=== PATIENT | female | born 1940 | race Caucasian/White ===

== ENCOUNTER → 2018-02-21 | Outpatient (CLI) | payer MEDICARE, MEDICAID ==
[~2018-02-21] MED LIST: AMLODIPINE BESY10 MG PO; ANTIVERT25 MG PO; ASPIR 8181 MG PO; ASPIRIN325 PO; CALCIUM 600 +1 EAC1 PO; CLOPIDOGREL75 MG PO; FOSAMAX 70 MG T70 MG PO; GLUCOPHAGE XR500 MG PO; GLUCOTROL5 MG PO; IRON325 PO; MAGOX 400400 MG PO; OMEPRAZOLE40 MG PO; PRINIVIL20 MG PO; SYNTHROID50 MCG PO; TYLENOL325 MG PO; UNICOMPLEX M TA1 TA1 PO; VITAMIN B-1100 M1 PO; VITAMINC500 PO; XANAX 0.25 MG0.25 MG PO; ZOCOR20 MG PO; ZOFRAN ODT4 MG PO; ZOFRAN ODT4 MG SUBLING
== END ==
LOC: M.ULTRA 13:45
DX: I65.23 Occlusion and stenosis of bilateral carotid arteries (principal); I77.1 Stricture of artery

== ENCOUNTER 2019-04-09 15:34 | Inpatient (IN) | payer MEDICARE, MEDICAID ==
[~2019-04-09] VITALS: Ht 162.6 cm; Wt 73.7 kg
[2019-04-09 15:40] VITALS: BP 125/37
[2019-04-09 16:03] LABS: ABSOLUTE BASOPHILS 0.1 thou/uL (0.0-0.2); ABSOLUTE EOSINOPHILS 0.2 thou/uL (0.0-0.7); ABSOLUTE LYMPHOCYTES 1.9 thou/uL (0.8-5.3); ABSOLUTE MONOCYTES 0.5 thou/uL (0.0-1.2); ABSOLUTE NEUTROPHILS 8.7 thou/uL (1.6-8.1); BASOPHILS 0.5 %; EOSINOPHILS 1.4 %; HEMATOCRIT 30.7 % (37.0-47.0); HEMOGLOBIN 10.1 gm/dL (12.0-15.0); LYMPHOCYTES 17.1 %; MCH 31.1 pg (26.0-34.0); MCHC 32.8 g/dL (28.0-37.0); MONOCYTES 4.3 %; MPV 9.8 fl. (7.2-11.1); NUCLEATED RBCS 0 /100WBC; PLATELET COUNT* 195 thou/uL (150-400); POLYS 76.7 %; RBC 3.23 mil/uL (4.20-5.00); RDW-CV 13.7 % (10.5-14.5); WBC 11.4 thou/uL (4.0-11.0)
[2019-04-09 16:12] LABS: CALCIUM 8.8 mg/dL (8.5-10.1)
[2019-04-09 16:17] LABS: ALBUMIN 3.8 g/dL (3.4-5.0); TOTAL BILIRUBIN 0.1 mg/dL (<0.1-1.0); TOTAL PROTEIN 7.1 g/dL (6.4-8.2)
[2019-04-09 18:54] LABS: APTT 29.2 Seconds (25.0-31.3); PROTIME 10.4 Seconds (9.20-11.50)
[2019-04-09 21:30] VITALS: BP 114/56; BP 120/62
[2019-04-09 22:22] LABS: URINE BILIRUBIN NEGATIVE (Negative); URINE BLOOD NEGATIVE (Negative); URINE CLARITY CLEAR; URINE COLOR YELLOW; URINE GLUCOSE-RANDOM NEGATIVE (Negative); URINE KETONES NEGATIVE (Negative); URINE LEUKOCYTES-REFLEX NEGATIVE (Negative); URINE NITRITE-REFLEX NEGATIVE (Negative); URINE PROTEIN NEGATIVE (Negative); URINE UROBILINOGEN 0.2 E.U./dl (0.2-1.0)
[2019-04-10] VITALS (11 sets, daily range): BP systolic 101–137; BP diastolic 41–76
[2019-04-10 01:10] LABS: PCO2 27.2 mmHg (35.0-45.0); PO2 115.4 mmHg (75.0-100.0); pH 7.359 (7.340-7.450)
[2019-04-10 01:11] LABS: BE -9.1 mmol/L (-2 to +3)
[2019-04-10 05:07] LABS: ABSOLUTE LYMPHOCYTES 1.5 thou/uL (0.8-5.3); ABSOLUTE MONOCYTES 0.7 thou/uL (0.0-1.2); ABSOLUTE NEUTROPHILS 8.6 thou/uL (1.6-8.1); BASOPHILS 0.2 %; EOSINOPHILS 0.4 %; HEMATOCRIT 29.2 % (37.0-47.0); HEMOGLOBIN 9.6 gm/dL (12.0-15.0); LYMPHOCYTES 13.6 %; MCH 31.2 pg (26.0-34.0); MCHC 32.9 g/dL (28.0-37.0); MCV 94.7 fL (80.0-100.0); MONOCYTES 6.1 %; MPV 9.8 fl. (7.2-11.1); NUCLEATED RBCS 0 /100WBC; PLATELET COUNT* 155 thou/uL (150-400); POLYS 79.7 %; RBC 3.09 mil/uL (4.20-5.00); RDW-CV 13.7 % (10.5-14.5); WBC 10.8 thou/uL (4.0-11.0)
[2019-04-10 05:20] LABS: ALBUMIN 2.8 g/dL (3.4-5.0); ALKALINE PHOSPHATASE 32 U/L (46-116); ANION GAP 13 mmol/L (7-16); BUN 13 mg/dL (7-18); CALCIUM 7.7 mg/dL (8.5-10.1); CHLORIDE 107 mmol/L (98-107); CHOLESTEROL 109 mg/dL (<200); CO2 19 mmol/L (21-32); CREATININE 0.8 mg/dL (0.6-1.3); GLUCOSE 136 mg/dL (70-99); HDL CHOLESTEROL 46 mg/dL (>40); LDL CHOLESTEROL 54 mg/dL (<100); POTASSIUM 3.8 mmol/L (3.5-5.1); SGOT 34 U/L (15-37); SGPT 17 U/L (30-65); SODIUM 139 mmol/L (136-145); TC:HDL 2.4 Ratio (Not establshd); TOTAL BILIRUBIN 0.2 mg/dL (<0.1-1.0); TOTAL PROTEIN 5.8 g/dL (6.4-8.2); TRIGLYCERIDE 45 mg/dL (<150); VLDL 9 mg/dL (<40)
[2019-04-10 05:21] LABS: SERUM ASSESSMENT Clear
--- NOTE | 2019-04-10 12:29 | CON ---
[address] [address] CONSULTATION Name: OSVALDO MACHADO Room: [address] IN .R.#: [id number] Admission: 04/09/19 Attend Phys: Seda Rizzo Discharge: Date of : 42 Report #: [id number] THIS REPORT FOR: //name// CC: Nader Brown MD [facility] Nader Rogers DO INDICATION: Non-ST elevation myocardial infarction. HISTORY OF PRESENT ILLNESS: The patient is a very pleasant 79-year-old white female who presented to the Emergency Room with progressive midsternal chest discomfort, abdominal pain and shortness of breath. The patient states she has been having intermittent chest discomfort for the past 3-4 days, relieved with rest. Her initial troponins were mildly elevated. Her peak troponin thus far is 6.0 suggesting non-ST elevation myocardial infarction. EKG shows sinus rhythm with diffuse ST segment depression. PAST MEDICAL HISTORY: 1. Carotid disease, status post left carotid stenting. 2. Coronary artery disease. 3. Hypertension. 4. Type 2 diabetes mellitus. 5. Hypercholesterolemia. 6. GERD. 7. Anxiety. 8. Hypothyroidism. 9. Hysterectomy. 10. 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 11. Tonsillectomy. 12. Hammertoe surgery. ALLERGIES: METFORMIN AND SULFAS. HOME MEDICATIONS: Glipizide 5 mg daily, Plavix 75 mg daily, Fosamax 70 mg weekly, simvastatin 20 mg at bedtime, aspirin 325 mg daily, Xanax 0.25 mg daily, amlodipine 10 mg daily, calcium carbonate with vitamin D supplement 1 tablet daily, lisinopril 20 mg daily. SOCIAL HISTORY: The patient smokes 4-5 cigarettes daily. She had a history of heavy alcohol use remotely, but quit 10-12 years ago. She lives alone. FAMILY HISTORY: Noncontributory. PHYSICAL EXAMINATION: VITAL SIGNS: Blood pressure 105/41, pulse 77 and regular. GENERAL: This is a pleasant lady who is not in distress. [place] [address] CONSULTATION Name: KATHARINE MACHADORA Honey Room: [address]#: [id number] Admission: 04/09/19 Attend Phys: Seda Rizzo Discharge: Date of : 42 Report #: [id number] she has had some respiratory insufficiency. HEENT: Head is normocephalic, atraumatic. Extraocular muscles intact. NECK: Shows no jugular venous distention. CHEST: Reveals diminished breath sounds throughout without wheezes or rales. CARDIOVASCULAR: Reveals distant S1 and S2. I do not appreciate gallop or murmur. ABDOMEN: Reveals normal bowel sounds. The abdomen is soft, nontender. EXTREMITIES: Shows no edema. Peripheral pulses palpable. SKIN: Dry. LABORATORY DATA: A 12-lead EKG shows sinus rhythm with diffuse ST segment depression consistent with ischemia. Chest x-ray shows mild cardiomegaly. I do not appreciate findings of heart failure. Possible right lower lobe pneumonia. Labs are reviewed. Sodium 139, potassium 3.8, chloride 107, bicarbonate 19, BUN 13, creatinine 0.8, serum glucose 136, albumin 2.8. Troponin presently 6.00. NT-proBNP 3999. Lipid profile shows cholesterol 109, triglycerides 45, HDL 46, LDL 54. Hemoglobin 9.6, white blood cell count 10.8, platelet count 155,000. IMPRESSION AND RECOMMENDATIONS: 1. Non-ST elevation myocardial infarction. The patient is on a heparin drip presently. Continue daily aspirin and Plavix. We will proceed with coronary angiography and possible intervention pending those results. 2. Respiratory failure. I suspect there has been some ysabj-wd-rodpeel diastolic heart failure. We will give bolus of IV Lasix and follow. 3. Hypertension. Blood pressure adequately controlled on current cardiac regimen. 4. Dyslipidemia, at goal on current dose of statin agent. 5. Diabetes per hospitalist. <ELECTRONICALLY SIGNED> By: Mukesh Richter MD, FACC 04/10/19 1229 0912 [id number] Richter MD, FACC /nt
--- NOTE | 2019-04-10 15:47 | 2DMMODE ---
[place] [address] 2 D/M-MODE ECHOCARDIOGRAM Name: OSVALDO MACHADO Room: [address] IN [facility]#: [id number] Admission: 04/09/19 Attend Phys: Shan Rogers Discharge: Date of : 42 Date of Service: 04/10/19 1547 Report #: [id number] THIS REPORT FOR: //name// APPROVED REPORT Study performed: 04/10/2019 11:06:49 EXAM: Comprehensive 2D, Doppler, and color-flow Echocardiogram Patient Location: In-Patient Room #: [facility] Status: routine BSA: 1.68 HR: 75 bpm BP: 105/41 mmHg Rhythm: NSR Other Information Study Quality: Good Indications Chest Pain 2D Dimensions IVSd: 9.72 (7-11mm) LVOT Diam: 19.90 (18-24mm) LVDd: 46.43 mm PWd: 8.93 (7-11mm) Ascending Ao: 25.31 (22-36mm) LVDs: 39.92 (25-40mm) Aortic Root: 24.37 mm Volumes Left Atrial Volume (Systole) LA ESV Index: 40.00 mL/m2 Aortic Valve AoV Peak Kamran.: 1.14 m/s AO Peak Gr.: 5.21 mmHg LVOT Max P.35 mmHg AO Mean Gr.: 3.40 mmHg LVOT Mean P.01 mmHg LVOT Max V: 0.77 m/s AO V2 VTI: 21.86 cm LVOT Mean V: 0.46 m/s CAROL (VTI): 2.06 cm2 LVOT V1 VTI: 14.44 cm Mitral Valve E/A Ratio: 2.91 MV Decel. Time: 118.10 ms MV E Max Kamran.: 1.17 m/[place] [address] 2 D/M-MODE ECHOCARDIOGRAM Name: OSVALDO MACHADO Room: [address] IN .R.#: [id number] Admission: 04/09/19 Attend Phys: Shan Rogers Discharge: Date of : 42 Date of Service: 04/10/19 1547 Report #: [id number] MV PHT: 34.25 ms MVA (PHT): 6.42 cm2 TDI E/Lateral E': 16.71 E/Medial E': 14.63 Medial E' Kamran.: 0.08 m/s Lateral E' Kamran.: 0.07 m/s Pulmonary Valve PV Peak Kamran.: 0.78 m/s PV Peak Gr.: 2.45 mmHg Tricuspid Valve RAP Estimate: 5.00 mmHg TR Peak Gr.: 35.57 mmHg RVSP: 40.00 mmHg PA Pressure: 40.00 mmHg Left Ventricle The left ventricle is normal size. There is mild global hypokinesis. There is normal left ventricular wall thickness. Left ventricular systolic function is mildly decreased. LVEF is 45-50%. Transmitral Doppler flow pattern suggests restrictive physiology. Right Ventricle The right ventricle is normal size. The right ventricular systolic function is normal. Atria Left atrium is mildly dilated. The right atrium size is normal. Aortic Valve Mild aortic valve sclerosis. No aortic regurgitation is present. There is no aortic valvular stenosis. Mitral Valve There is mitral annular calcification. Moderate mitral regurgitation. No evidence of mitral valve stenosis. Tricuspid Valve The tricuspid valve is normal in structure. Mild tricuspid regurgitation. The RVSP is 45-50 mmHg. Pulmonic Valve The pulmonary valve is normal in structure. There is no pulmonic [place] [address] 2 D/M-MODE ECHOCARDIOGRAM Name: OSVALDO MACHADO Room: [address] IN [facility]#: [id number] Admission: 04/09/19 Attend Phys: Shan Rogers Discharge: Date of : 42 Date of Service: 04/10/19 1547 Report #: [id number] Great Vessels The aortic root is normal in size. IVC is dilated and collapses >50% with inspiration. Pericardium There is no pericardial effusion. <Conclusion> The left ventricle is normal size. There is normal left ventricular wall thickness. Left ventricular systolic function is mildly decreased. LVEF is 45-50%. Transmitral Doppler flow pattern suggests restrictive physiology. There is mild global hypokinesis. Left atrium is mildly dilated. Mild aortic valve sclerosis. There is mitral annular calcification. Moderate mitral regurgitation. Mild tricuspid regurgitation. The RVSP is 45-50 mmHg. IVC is dilated and collapses >50% with inspiration. <ELECTRONICALLY SIGNED> By: Mukesh Richter MD, FACC 04/10/19 1547 1547 1547 Mukesh Richter MD, FACC /INF
--- NOTE | 2019-04-10 15:50 | EKG ---
[place] [address] ELECTROCARDIOGRAM REPORT Name: OSVALDO MACHADO Room: [address] ADM IN R.#: [id number] Admission: 04/09/19 Attend Phys: Seda Rizzo Discharge: Date of : 41 Report #: [id number] THIS REPORT FOR: //name// [facility] ED Test Date: 2019-04-09 Test Time: 16:20:35 Pat Name: OSVALDO MACHADO Department: Room: [facility] Gender: F Gold Letterer: : 1940 Requested By: Carina Gaona Order Number: [id number] MD: Asif Renner Measurements Intervals [place] Rate: 60 P: 61 KS: 138 QRS: -24 QRSD: 93 T: 158 QT: 435 QTc: 435 Interpretive Statements Sinus rhythm Atrial premature complex Borderline left axis deviation Nonspecific repol abnormality, diffuse leads Compared to ECG 10/16/2016 15:46:17 Atrial premature complex(es) now present Early repolarization now present anterolateral st-t changes are noted Electronically Signed On 04-10-2019 15:49:42 MITIGATION SUPERVISOR by Asif Renner [email or web address] <ELECTRONICALLY SIGNED> By: Asif Renner MD, [facility] 04/10/19 1549 1620 1620 Asif Renner MD, [facility] /EPI
--- NOTE | 2019-04-10 15:53 | EKG ---
[place] [address] ELECTROCARDIOGRAM REPORT Name: CARTEROSVALDO Honey Room: [address] ADM IN .R.#: [id number] Admission: 04/09/19 Attend Phys: Seda Rizzo Discharge: Date of : 41 Report #: [id number] THIS REPORT FOR: //name// [facility] ED Test Date: 2019-04-09 Test Time: 20:39:03 Pat Name: OSVALDO MACHADO Department: Room: [facility] Gender: F Skilled Nursing Facilities Professional: DESI : 1940 Requested By: Jeniffer Horvath Order Number: [id number] MD: Asif Renner Measurements Intervals [place] Rate: 66 P: 75 [place]: 141 QRS: -16 QRSD: 101 T: 109 QT: 469 QTc: 492 Interpretive Statements Sinus rhythm Borderline left axis deviation Nonspecific repol abnormality, diffuse leads Baseline wander in lead(s) V5,V6 Compared to ECG 10/16/2016 15:46:17 T-wave abnormality persists Electronically Signed On 04-10-2019 15:52:47 ICE CRUSHER by Asif Renner [email or web address] <ELECTRONICALLY SIGNED> By: Asif Renner MD, [facility] 04/10/19 1552 38 38 Asif Renner MD, [facility] /EPI
--- NOTE | 2019-04-10 15:56 | EKG ---
[place] [address] ELECTROCARDIOGRAM REPORT Name: CARTEROSVALDO Méndez Room: [address] ADM IN M.R.#: [id number] Admission: 04/09/19 Attend Phys: Seda Rizzo Discharge: Date of : 41 Report #: [id number] THIS REPORT FOR: //name// [facility] Test Date: 2019-04-10 Test Time: 00:03:34 Pat Name: OSVALDO MACHADO Department: Room: [address] Gender: F Merchandise Presentation Associate: TCAYLJUDY : 1940 Requested By: Shan Rogers Order Number: [id number] MD: Asif Renner Measurements Intervals [place] Rate: 74 P: 69 ME: 135 QRS: -9 QRSD: 79 T: 152 QT: 588 QTc: 653 Interpretive Statements Sinus rhythm Multiple premature complexes, vent & supraven Borderline low voltage, extremity leads Borderline repolarization abnormality Prolonged QT interval Compared to ECG 10/16/2016 15:46:17 Prolonged QT interval now present T-wave abnormality persists Electronically Signed On 04-10-2019 15:56:27 CUPOLA CHARGER by Asif Renner [email or web address] <ELECTRONICALLY SIGNED> By: Asif Renner MD, [facility] 04/10/19 1556 0003 0003 Asif Renner MD, [facility] /EPI
--- NOTE | 2019-04-10 18:02 | CARD ---
[facility] [address] [place] [address] CARDIAC CATH REPORT Name: OSVALDO MACHADO Room: [address] IN ..#: [id number] Admission: 04/09/19 Attend Phys: Seda Rizzo Discharge: Date of : 41 Report #: [id number] THIS REPORT FOR: //name// APPROVED REPORT Study performed: 04/10/2019 11:35:37 Patient Details Patient Status: In-Patient Room #: The patient is a 79 year-old female Event Personnel Mukesh Richter Time Piece Repairer, Macey Mares RN Coke Still Cleaner, Abdirahman Lind RTR Scrub, Heather Peguero RTR Monitor Procedures Performed Art Access - R femoral artery, Left Heart Cath w/or w/o Coronaries , LHC Hemostasis w/ Mynx Procedure Narrative The patient was brought electively to the Cardiac Catheterization Laboratory and was prepped and draped in a sterile manner. The right femoral groin area was infiltrated with 2% Lidocaine subcutaneous anesthesia. A 6fr Ultimum Sheath sheath was inserted into the right femoral artery. Coronary angiography was performed using coronary diagnostic catheters. The right coronary system was accessed and visualized with a 6F JR4 catheter. The left coronary system was accessed and visualized with a 6F JL4 catheter. Closure device was deployed with a Fr Mynx 6Fr/7Fr. The patient tolerated the procedure well and there were no complications associated with the procedure. LV and LV-AO pullback pressures only performed with 6F JR4 catheter. Intraoperative Conscious Sedation Sedation start time: 12:10 Case end Time: 12:23 Fentanyl 25 mcg Versed 1 mg Dose: 353 mGy Contrast Type and Amount: Visipaque 40 ml Coronary Angiography The patient's coronary anatomy is [place] [address] CARDIAC CATH REPORT Name: OSVALDO MACHADO Room: [address] IN [facility]#: [id number] Admission: 04/09/19 Attend Phys: Seda Rizzo Discharge: Date of : 41 Report #: [id number] Left Main The left main coronary artery disease has significant haziness and lucency with a 70% mid vessel narrowing and 95% distal vessel narrowing. LAD Ostial left anterior descending coronary artery appears to be 90% stenosed. The mid and distal vessel are free of significant disease. Diagonal 1 The ostium of the first diagonal branch is 50% narrowed. Circumflex The circumflex coronary artery has sequential 90% stenoses in the proximal and mid vessel. Significant calcification is noted. OM1 A small first OM is diffusely disease. OM2 A small second OM is diffusely disease. OM3 A moderate size third OM is diffusely plaqued with 70% narrowing in its midportion. Right Coronary The right coronary artery has a 50% narrowing in the proximal portion. There is 30% narrowing in the midportion and 20% narrowing distally. R PDA The right PDA has plaquing in its proximal and midportion. Left Ventriculography Left Ventriculography was not performed. Hemodynamics The aortic pressure is 119/47 mmHg with a mean of 62 mmHg. The left ventricular pressure is 98/14 mmHg with a mean of mmHg. The left ventricular end diastolic pressure is 27 mmHg. Conclusion 1. Severe left main coronary artery disease. 2. Ostial left anterior descending coronary artery disease. 3. Severe proximal to mid circumflex lesion. 4. Moderate right coronary artery disease. 5. Elevated left jugular end-diastolic pressure consistent with acute diastolic heart failure. Recommendations 1. Continue aggressive risk factor modification. 2. Consider coronary artery bypass grafting. <ELECTRONICALLY SIGNED> By: Mukesh Richter MD, FACC 04/10/191800 00 00Miccarlene Richter MD, FACC /INF
[2019-04-10 23:08] LABS: GLYCOHEMOGLOBIN (HGB A1C) 6.4 % (4.8-5.6)
[2019-04-11] VITALS: BP 119/52
[2019-04-11 04:00] VITALS: BP 128/54
[2019-04-11 05:26] LABS: ABSOLUTE LYMPHOCYTES 2.3 thou/uL (0.8-5.3); ABSOLUTE MONOCYTES 0.8 thou/uL (0.0-1.2); ABSOLUTE NEUTROPHILS 6.7 thou/uL (1.6-8.1); BASOPHILS 0.2 %; EOSINOPHILS 0.4 %; HEMATOCRIT 27.8 % (37.0-47.0); LYMPHOCYTES 22.9 %; MCH 30.6 pg (26.0-34.0); MCHC 32.2 g/dL (28.0-37.0); MCV 95.1 fL (80.0-100.0); MONOCYTES 8.4 %; NUCLEATED RBCS 0 /100WBC; PLATELET COUNT* 157 thou/uL (150-400); POLYS 68.1 %; RBC 2.93 mil/uL (4.20-5.00); RDW-CV 14.1 % (10.5-14.5); WBC 9.9 thou/uL (4.0-11.0)
[2019-04-11 06:05] LABS: BE -3.9 mmol/L (-2 to +3); PCO2 28.4 mmHg (35.0-45.0); PO2 96.6 mmHg (75.0-100.0); pH 7.453 (7.340-7.450)
--- NOTE | 2019-04-11 07:37 | CON ---
[address] [address] CONSULTATION Name: CARTEROSVALDO S Room: [address] IN M.R.#: [id number] Admission: 04/09/19 Attend Phys: Seda Rizzo Discharge: Date of : 41 Report #: [id number] THIS REPORT FOR: //name// CC: Nader Rogers DATE OF SERVICE: 04/10/2019 INFECTIOUS DISEASE CONSULTATION ATTENDING PHYSICIAN: Shan Rogers DO REASON FOR EVALUATION: Pneumonitis. HISTORY OF PRESENT ILLNESS: Chart reviewed, patient examined. This is a 79-year-old woman with known cardiomyopathy, diabetes mellitus who presented with diffuse chest-related discomfort, abdominal pain, dyspnea, and productive cough. She noted chest pain has been just progressive since signs and symptoms started 3-4 days prior. She was evaluated, mildly elevated troponin level with a markedly elevated NT pro-brain natriuretic peptide, 4000. Imaging suggested possible right-sided basilar pneumonitis. Due to hypoxemia, she was placed on BiPAP. She is lucid at this point, does admit to some chest discomfort, apparently had had some low-grade temperature elevations and actually had some recent weight loss as well. She was empirically started on antimicrobials with ceftriaxone and azithromycin. It is notable she is planning on transferring to hospital for possible cardiac intervention. ALLERGIES: SULFA, METFORMIN. CURRENT MEDICATIONS: Include azithromycin, ipratropium and albuterol inhaler, amlodipine, ascorbic acid, aspirin, Apresoline, lisinopril, ceftriaxone, levothyroxine, heparin drip p.r.n., glipizide, clopidogrel. 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 SOCIAL HISTORY: Smokes half pack a day for 65 years. No illicit drug use. No ethanol. FAMILY HISTORY: Noncontributory. REVIEW OF SYSTEMS: Otherwise unremarkable 10-point review of systems except [place] [address] CONSULTATION Name: OSVALDO MACHADO Room: [address]#: [id number] Admission: 04/09/19 Attend Phys: Seda Rizzo Discharge: Date of : 41 Report #: [id number] PHYSICAL EXAMINATION: GENERAL: She appears somewhat chronically ill, undernourished. She is alert, cooperative, pleasant, in [id number]-bt-dccmdklo distress. VITAL SIGNS: Temperature 97.8, pulse 70, respirations 16, blood pressure 109/48. HEENT: She has BiPAP in place. Normocephalic. Extraocular muscles intact. NECK: Supple. LUNGS: Scattered coarse breath sounds bilaterally. HEART: Regular. I do not appreciate a murmur. ABDOMEN: Soft, nontender, nondistended. EXTREMITIES: No cyanosis. GENITOURINARY: Deferred. RECTAL: Deferred. LABORATORY DATA: Carotid ultrasound, right ICA 60% stenosis. Vein mapping for suspected requirement of coronary bypass undertaken as well. Blood culture 1 out of 2 gram-positive rods. Troponin level elevated at 6.0. Electrolytes: Sodium 139, potassium 3.8, chloride 107, bicarbonate is 19, anion gap of 13, BUN and creatinine 13 and 0.8, glucose of 136. LFTs unremarkable. Albumin of 2.8, total protein of 5.8, estimated GFR of 69. CBC: White count of 10.8, H and H 9.6 and 29.2, platelets of 155 and neutrophilia. ABGs; pH 7.359, pCO2 of 27.2, pO2 of 115.4 with a BiPAP. Urinalysis otherwise unremarkable. Initial lactic acid of 2.1, peaked to 2.2. ASSESSMENT: Pneumonitis in the setting of an acute myocardial infarction, remains quite tenuous at this point. We will continue empiric antimicrobial therapy for community-acquired pneumonia, ceftriaxone and azithromycin are reasonable choice. Blood culture with Gram-positive spring, initially would favor false positive. We will wait for results. If it would worsen, could consider adding some broad spectrum gram-positive coverage such as vancomycin and that is plan. She may transfer. I did discuss with the patient and her son. <ELECTRONICALLY SIGNED> By: Bobby Membreno MD 04/11/19 0737 1528 [id number] Membreno MD /nt
[2019-04-11 08:00] VITALS: BP 126/50
[2019-04-11 12:14] VITALS: BP 92/41
[2019-04-11 16:29] VITALS: BP 78/58; BP 78/88
== END 2019-04-11 19:02 | disposition short-term general hospital (02) | DRG 871 ==
LOC: M.ERS 15:34 → M.2W 18:13 → M.TBA-ER 18:13 → M.2W 18:13
PROVIDERS: Emergency Medicine Emergency Medical Services; Physician Assistant; ADMIT Internal Medicine
PROC: 5A09357 Assistance with Respiratory Ventilation, Less than 24 Consecutive Hours, Continuous Positive Airway Pressure (ICD-10-PCS; principal; 2019-04-09)
PROC: 4A023N7 Measurement of Cardiac Sampling and Pressure, Left Heart, Percutaneous Approach (ICD-10-PCS; 2019-04-10)
PROC: B211YZZ Fluoroscopy of Multiple Coronary Arteries using Other Contrast (ICD-10-PCS; 2019-04-10)
PROC: 5A09357 Assistance with Respiratory Ventilation, Less than 24 Consecutive Hours, Continuous Positive Airway Pressure (ICD-10-PCS; 2019-04-10)
DX: A41.9 Sepsis, unspecified organism (principal); J18.9 Pneumonia, unspecified organism; J96.01 Acute respiratory failure with hypoxia; I21.4 Non-ST elevation (NSTEMI) myocardial infarction; I50.33 Acute on chronic diastolic (congestive) heart failure; I42.9 Cardiomyopathy, unspecified; F41.9 Anxiety disorder, unspecified; E11.9 Type 2 diabetes mellitus without complications; K21.9 Gastro-esophageal reflux disease without esophagitis; F17.210 Nicotine dependence, cigarettes, uncomplicated; F10.10 Alcohol abuse, uncomplicated; I11.0 Hypertensive heart disease with heart failure; I25.10 Atherosclerotic heart disease of native coronary artery without angina pectoris; E78.5 Hyperlipidemia, unspecified; F32.9 Major depressive disorder, single episode, unspecified; E78.00 Pure hypercholesterolemia, unspecified; E03.9 Hypothyroidism, unspecified; Z90.710 Acquired absence of both cervix and uterus; Z88.8 Allergy status to other drugs, medicaments and biological substances; Z88.2 Allergy status to sulfonamides; Z79.899 Other long term (current) drug therapy; Z79.82 Long term (current) use of aspirin; Z80.8 Family history of malignant neoplasm of other organs or systems; Z82.49 Family history of ischemic heart disease and other diseases of the circulatory system; Z85.89 Personal history of malignant neoplasm of other organs and systems